=== PATIENT | male | born 1945 | race Caucasian/White ===

== ENCOUNTER 2024-10-20 12:45 | Inpatient (IN) | payer MEDICARE, SELFPAY ==
[2024-10-20 13:33] VITALS: BP 120/63; PULSE 63; RESP 18; TEMP 36.4; O2SAT 98
[2024-10-20 14:14] VITALS: RESP 18; O2SAT 95
[2024-10-20 15:15] VITALS: O2SAT 97
--- NOTE | 2024-10-20 15:15 | HP.PCM_ITS ---
HPI - General General Date of Admission: 10/20/24 Date of Service: 10/22/24 Chief Complaint: Here for rehabilitation. HPI Narrative ABDIFATAH FONSECA, is a 79 Male who presents with followin09/28/2024 Admit [facility] with chest pain, sharp pain in low back. Intramural aortic thrombus versus aortic dissection. Aspirin, nitroglycerin given by EMS. CT chest/abdomen/pelvis showed probable intraluminal hematoma/dissection extending from ascending thoracic aorta to descending thoracic aorta, stopping in upper abdominal aorta. Mediastinum hemorrhage, trace amount fluid. Esmolol bolus/drip started fot elevated blood pressure. Admit to ICU, CT surgery consulted. TERRIE NixonO. Trend troponins. 09/28/2024 CT surgery status post ascending aortic repair with circulatory arrest, IRINA. 10/16/2024 POD #18, afebrile, normal sinus rhythm, blood pressure stable, room air. Multiple strokes, right SDH; Aspirin, Statin, beta chastity, amlodipine, hydralazine, Losartan, Lasix given. Moves all extremities, weak, answering questions. Tolerating TF. Blood pressure controlled, Lasix 40mg iv, then po. Replete potassium. PT/OT/ST, OOB. 10/20/2024 Admit to TCU with debility, here for rehabilitation, strengthening, prior to discharge home with . [facility] Medical History (Updated 10/20/24 @ 15:[address] Eleno Kulkarni MD) Cancer Diabetes Non-smoker DVT (deep venous thrombosis) Hypertension Stroke/cerebrovascular accident Home Medications ?Medication ?Instructions ?Recorded ?Last Taken ?Type acetaminophen 500 mg capsule 1,000 mg feeding tube Q8H Pain 10/20/24 10/20/24 06:15 History amlodipine 10 mg tablet 10 mg feeding tube DAILY hea rt 10/20/24 10/20/24 08:40 History apixaban 5 mg tablet (Eliquis) 10 mg feeding tube BID blood 10/20/24 10/20/24 08:45 History thinner atorvastatin 40 mg tablet (Lipitor) 40 mg feeding tube QHS cholesterol 10/20/24 10/19/24 21:12 History carvedilol 25 mg tablet 25 mg feeding tube BID BP 10/20/24 08:45 History furosemide 40 mg tablet (Lasix) 40 mg feeding tube SUZIE LY fluid 10/20/24 10/20/24 08:45 History hydralazine 50 mg tablet 50 mg feeding tube TID BP 10/20/24 06:15 History insulin glargine 100 unit/mL (3 12 unit subcut DAILY D M 10/20/24 10/20/24 09:15 History mL) subcutaneous pen (Lantus Solostar U-100 Insulin) insulin regular human 100 unit/mL 4 unit subcut Q6H DM 10/20/24 Unknown History injection solution (Novolin R Regular U-100 Insulin) lansoprazole 30 mg delayed 30 mg feeding tube DAILY GE RD 10/20/24 10/20/24 06:15 History release,disintegrating tablet losartan 100 mg tablet (Cozaar) 100 mg feeding tube DA WARREN BP 10/20/24 10/20/24 08:45 History nystatin 100,000 unit/mL oral 4 ml PO Q6H THRUSH 10/2010/20/24 08:45 History suspension oxycodone 5 mg capsule 5 mg feeding tube Q6H Pain 7 -10 10/20/24 Unknown History potassium chloride 20 mEq oral 40 meq PO DAILY replace ment 10/20/24 10/20/24 08:45 History packet prednisone 5 mg tablet 5 mg feeding tube DAILY ster oid 10/20/24 10/20/24 08:40 History Allergy/AdvReac Type Severity Reaction Status Date / Time metformin Allergy Mild Fatigue Verified 10/20/24 14:45 amlodipine AdvReac Mild Cough Verified 10/20/24 14:45 betamethasone (From AdvReac Mild Raises Verified 10/20/24 14:45 Celestone) blood sugar Family History (Updated 10/20/24 @ 15:[address] Eleno Kulkarni MD) Mother Colon cancer Father Cerebral aneurysm Sister Valvular heart disease Surgical History (Updated 10/20/24 @ 15:[address] Eleno Kulkarni MD) History of retinal tear History of prostatectomy History of sinus surgery History of colonoscopy History of cataract surgery Social History (Updated 10/20/24 @ 15:[address] Eleno Kulkarni MD) household members: significant other and children housing: house Smoking Status: Never smoker alcohol intake: current alcohol intake frequency: 0-2 drinks per day substance use type: does not use ROS Constitutional Constitutional: Reports weakness; Denies chills, fever(s) or weight gain ENT HEENT: Denies headache(s), nasal congestion or nasal discharge Cardiovascular Cardiovascular: Denies chest pain or palpitations Respiratory/Chest Respiratory/Chest: Denies cough, excessive phlegm production or shortness of breath with exertion Gastrointestinal Gastrointestinal: Denies abdominal pain, nausea or vomiting Genitourinary Genitourinary: Denies dysuria Musculoskeletal Musculoskeletal: Denies joint pain or joint swelling Integumentary Integumentary: Denies rash or wounds Neurologic Neurologic: Denies focal weakness, numbness or tingling Psychiatric Psychiatric: Denies anxiety, auditory hallucinations, depression, homicidal ideation or suicidal ideation Vital Signs Vital Signs Vital Signs: 10/20/24 13:33 10/20/24 14:14 Temperature 97.6 F L Temperature Source Temporal Pulse Rate 63 Pulse Rhythm Regular Pulse Strength Normal (2+) Respiratory Rate 18 18 Respiratory Effort Normal Non-Labored Respiratory Depth Normal Respiratory Pattern Normal Blood Pressure 120/63 Blood Pressure Mean 82 Blood Pressure Source Monitor Blood Pressure Position Semi-Fowlers Blood Pressure Location Left Arm Pulse Ox 98 95 Oxygen Delivery Method Room Air Room Air Physical Exam Const alert General Appearance: cooperative HEENT normocephalic Eyes PERRL and EOMs intact bilaterally Neck supple, no JVD and no carotid bruits Resp normal respiratory effort, normal air movement and clear to auscultation bilaterally Cardio regular rate and regular rhythm GI normal to inspection, nondistended, normoactive bowel sounds, non-tender and non-distended GI Narrative: PEG. Extremity normal capillary refill General Extremity: Negative for edema Skin no rashes or lesions noted General Skin Exam: no breakdown Neuro Neuro Narrative: Moves right upper extremity only. Psych affect normal Appearance: appropriate Results Lab / Micro Data 10/21/24 04:40 10/21/24 04:40 Assessment & Plan Assessment/Plan (1) Debility: (2) Aortic dissection: (3) Stroke/cerebrovascular accident: (4) Subdural hematoma: (5) Essential (primary) hypertension: (6) Hyperlipidemia, unspecified: (7) History of prostate cancer: (8) Osteoarthritis of right knee: (9) Type 2 diabetes mellitus with hyperglycemia: PLAN: Plan 79 year old male with below past medical history hospitalized for ascending thoracic aortic dissection s/p repair 09/28/2024, postoperative course complicated by stroke, right subdural hematoma, TF, admitted to TCU with debility, here for rehabilitation, strengthening, prior to discharge home with . * Debility - PT/OT. * Dysphagia - ST. * Pain - Tylenol 1000mg q8, Oxycodone 5mg q6 prn * Bowel - senna/colace 1 tablet bid. * Adult immunization - Administer pneumonia vaccine, covid vaccine, flu vaccine as appropriate. * DVT prophylaxis - Eliquis. * Hypertension - Coreg 25mg bid, Losartan 100mg daily, Hydralazine 50mg tid, Amlodipine 10mg daily, Furosemide 40mg daily. * RUE DVT - Eliquis 10mg bid thru 10/25/2024, then 5mg bid thru 01/18/2025. * Hyperlipidemia - Atorvastatin 40mg qhs. * Diabetes Mellitus II - Glargine 12 units daily, Lispro 4 units q6. * GERD - Lansoprazole 30mg daily. * Thrush - Nystatin 400 units q6 x 10 days. * Hypokalemia - KCL 40meq daily. * Pulmonary inflammation - Prednisone 5mg daily. * Nutrition - Vital High Protein 50ml/hour.
[2024-10-20] MEDS: Vital High Protein 1,000 ML 50 ML GT (15:40)
[2024-10-20 15:41] VITALS: BP 120/63; PULSE 63
[2024-10-20] MEDS: NYSTATIN 500,000 UNIT/5 ML UDC 400000 UNIT PO ×2 (18:00→23:56)
[2024-10-20 21:35] VITALS: BP 145/70; PULSE 73; RESP 18
[2024-10-20 21:38] VITALS: BP 145/70; PULSE 73
[2024-10-20] MEDS: APIXABAN 5 MG TABLET 10 MG GT (21:39)
[2024-10-20] MEDS: Acetaminophen 650 MG/20 ML UDC 1000 MG GT (22:14)
[2024-10-21 05:06] LABS: Hematocrit 37.2 % (40-54); Hemoglobin 12.7 g/dL (13.0-16.5); Immature Granulocytes Count 0.070 X10^3/uL (0.0-0.0); Mean Corp Hgb Conc 34.1 g/dL (32-36); Mean Corpuscular Volume 88.4 fL (80-94); Mean Platelet Vol. 10.4 fl (6.2-12.0); NRBC Flagged by Analyzer 0 % (0-5); Platelet Count 236 K/mm3 (150-450); RBC Distribution Width CV 14.7 % (11.6-14.6); RBC Distribution Width SD 47.5 fl (35.1-43.9); Red Blood Count 4.21 M/mm3 (4.6-6.2); White Blood Count 11.7 K/mm3 (4.4-11.0)
[2024-10-21 05:45] LABS: Anion Gap 12 (5-15); BUN 46 mg/dL (4-19); BUN/Creat Ratio 46.2 RATIO (10-20); Calcium,Total 8.7 mg/dL (7.6-11.0); Carbon Dioxide 19.7 mmol/L (21.0-32.0); Chloride 105 mmol/L (98-108); Glucose 182 mg/dL (70-99); Potassium 3.9 mmol/L (3.3-5.1)
[2024-10-21] MEDS: 0.9% Saline Lock 10 ML Syringe IV ×3 (06:41→22:39)
[2024-10-21] MEDS: Acetaminophen 650 MG/20 ML UDC 1000 MG GT ×3 (06:44→22:38)
[2024-10-21] MEDS: NYSTATIN 500,000 UNIT/5 ML UDC 400000 UNIT PO ×3 (06:45→17:15)
[2024-10-21 06:46] VITALS: BP 122/62; PULSE 64
[2024-10-21] MEDS: APIXABAN 5 MG TABLET 10 MG GT ×2 (09:17→22:38)
[2024-10-21] MEDS: Potassium Chloride Oral Soln 20 MEQ/15 ML UDC 40 MEQ GT (09:18)
--- NOTE | 2024-10-21 09:44 | PCM.PN.DRR ---
Documented by User: Jj Roman 10/21/24 10:38 TCU RX Drug Regimen Review Subjective/Objective Subjective/Objective Subjective: TCU admission note. 79 year old male with below past medical history hospitalized for ascending thoracic aortic dissection s/p repair 09/28/2024, postoperative course complicated by stroke, right subdural hematoma, TF, admitted to TCU with debility, here for rehabilitation, strengthening, prior to discharge home with . Objective: Allergies metformin Allergy (Mild, Verified 10/20/24 14:45) Fatigue amlodipine Adverse Reaction (Mild, Verified 10/20/24 14:45) Cough betamethasone (From Celestone) Adverse Reaction (Mild, Verified 10/20/24 14:45) Raises blood sugar Current Medications Generic Name Dose Route Start Last Admin Trade Name Freq PRN Reason Stop Dose Admin Acetaminophen 1,000 mg 10/20/24 22:00 10/21/24 06:44 Acetaminophen 650 Mg/20 Ml Udc GT 1,000 mg Q8 KAZ Administration Amlodipine Besylate 10 mg 10/21/24 10:00 10/21/24 09:15 Amlodipine 10 Mg Tablet GT 10 mg DAILY KAZ Administration Protocol Apixaban 10 mg 10/20/24 22:00 10/21/24 09:17 Apixaban 5 Mg Tablet GT 10/25/24 22:01 10 mg BID KAZ Administration Apixaban 5 mg 10/26/24 10:00 Apixaban 5 Mg Tablet GT 01/18/25 23:59 BID KAZ Atorvastatin Calcium 40 mg 10/20/24 22:00 10/20/24 21:39 Atorvastatin Calcium 40 Mg Tablet GT 40 mg QHS KAZ Administration Carvedilol 25 mg 10/20/24 22:00 10/21/24 09:17 Carvedilol 25 Mg Tablet GT 25 mg BID KAZ Administration Furosemide 40 mg 10/21/24 10:00 10/21/24 09:17 Furosemide 40 Mg Tablet GT 40 mg DAILY KAZ Administration Protocol Hydralazine HCl 50 mg 10/20/24 14:00 10/21/24 06:46 Hydralazine 50 Mg Tablet GT 50 mg TID KAZ Administration Protocol Enteral Nutritional Formula 1,000 mls @ 50 mls/hr 10/20/24 13:45 10/20/24 15:40 Vital High Protein GT 50 mls/hr .Q20H KAZ Administration Insulin Glargine 12 unit 10/21/24 10:00 Insulin Glargine-Yfgn 100 Unit/Ml Pen SC DAILY KAZ Insulin Human Lispro 4 unit 10/20/24 18:00 10/21/24 06:45 Insulin Lispro 100 Unit/Ml Insuln.Pen SC 4 u Q6 KAZ Administration Lansoprazole 30 mg 10/21/24 10:00 10/21/24 09:17 Lansoprazole 15 Mg Capsule.Dr GT 30 mg DAILY KAZ Administration Losartan Potassium 100 mg 10/21/24 10:00 10/21/24 09:17 Losartan Potassium 100 Mg Tablet GT 100 mg DAILY KAZ Administration Protocol Nystatin 400,000 unit 10/20/24 18:00 10/21/24 06:45 Nystatin 500,000 Unit/5 Ml Udc PO 10/30/24 18:01 400,000 unit Q6 KAZ Administration Oxycodone HCl 5 mg 10/20/24 14:00 Oxycodone 5 Mg Tablet GT Q6H PRN PAIN 7-10 Potassium Chloride 40 meq 10/21/24 10:00 10/21/24 09:18 Potassium Chloride Oral Soln 20 Meq/15 Ml Udc GT 40 meq DAILY KAZ Administration Prednisone 5 mg 10/21/24 10:00 10/21/24 09:15 Prednisone 5 Mg Tablet GT 5 mg DAILY KAZ Administration Senna/Docusate Sodium 1 tablet 10/20/24 15:38 Senna/Docusate Sodium 1 Tablet GT BID PRN Constipation Sodium Chloride 10 - 40 ml 10/20/24 13:36 10/21/24 09:23 0.9% Saline Lock 10 Ml Syringe IV 10 ml UD PRN Administration SALINE FLUSH Tuberculin PPD 0.1 ml 10/21/24 10:00 Tuberculin,Purif.Prot.Deriv. 50 Tu/Ml Vial ID 10/21/24 10:01 X1 ONE Tuberculin PPD 0.1 ml 10/28/24 10:00 Tuberculin,Purif.Prot.Deriv. 50 Tu/Ml Vial ID 10/28/24 10:01 X1 ONE Problem List Type 2 diabetes mellitus with hyperglycemia (Acute) Osteoarthritis of right knee (Acute) History of prostate cancer (Acute) Hyperlipidemia, unspecified (Acute) Essential (primary) hypertension (Acute) Subdural hematoma (Acute) Stroke/cerebrovascular accident (Acute) Aortic dissection (Acute) Debility (Acute) Vital Signs Temp Pulse Resp BP Pulse Ox O2 Del Method 97.6 F L 64 18 122/62 H 97 Room Air 10/20/24 13:33 10/21/24 06:46 10/20/24 21:35 10/21/24 06:46 10/20/24 15:15 10/20/24 20:25 Oxygen Delivery Method Room Air Sodium 137 mmol/L (133-145) 10/21/24 04:40 Potassium 3.9 mmol/L (3.3-5.1) 10/21/24 04:40 Chloride 105 mmol/L (98-108) 10/21/24 04:40 Carbon Dioxide 19.7 mmol/L (21.0-32.0) L 10/21/24 04:40 Anion Gap 12 (5-15) 10/21/24 04:40 BUN 46 mg/dL (4-19) H 10/21/24 04:40 Creatinine 0.99 mg/dL (0.70-1.20) 10/21/24 04:40 Est GFR (MDRD) Non-Af 79 (>60) 10/21/24 04:40 BUN/Creatinine Ratio 46.2 RATIO (10-20) H 10/21/24 04:40 Glucose 182 mg/dL (70-99) H 10/21/24 04:40 Assessment/Plan: 1. Pain: acetaminophen 1000 mg GT Q8H, oxycodone 5 mg GT Q6H PRN pain. The patient has not used any PRN doses of oxycodone so far this admission. Please continue to monitor pain levels, PRN medication usage, LFTs (no recent LFTS documented), for respiratory depression, constipation, syncope/ataxia/falls, and for drowsiness/dizziness. 2. Bowel: senna/docusate 1 tablet GT BID. Please continue to monitor for bowel movements (last documented on 10/20/24), for constipation and diarrhea. 3. DVT: apixaban 10 mg GT BID through 10/25/24, then apixaban 5 mg GT BID through 01/18/25. Please continue to monitor for recurrent DVT, for bleeding/excessive bruising, hemoglobin levels (Hgb = 12.7 g/dL), and platelet counts (Plt = 236 K/mm3). 4. Hypertension: carvedilol 25 mg GT BID, amlodipine 10 mg GT daily, furosemide 40 mg GT daily, hydralazine 50 mg GT TID, losartan 100 mg GT daily. Please continue to monitor blood pressures (recent range = 120-145/62-70 mmHg), heart rates (recent range = 63-73 beats/min), for fatigue, lower extremity edema, renal function (serum creatinine = 0.99 on 10/21/24), sodium levels (Na = 137 mmol/L on 10/21/24), potassium levels (K = 3.9 mmol/Tripp 10/21/24), calcium levels (Ca = 8.7 mg/dL on 10/21/24), for s/s of dehydration, and for dizziness. 5. Hyperlipidemia: atorvastatin 40 mg GT QHS. Please continue to monitor lipid levels (no recent lipid levels documented), as well as LFTs (no recent LFTs documented), and for myalgias. 6. Diabetes Mellitus II: insulin glargine 12 units SC daily, insulin lispro 4 units SC Q6H. Please continue to monitor hemoglobin A1C levels (no recent A1C documented), and blood glucose levels (recent range = 116-172 mg/dL). 7. GERD: lansoprazole 30 mg GT daily. Please continue to monitor for s/s of GERD, for diarrhea that could indicate clostridium difficile infection, and for s/s of bone resorption such as fractures. 8. Thrush: nystatin 400,000 units PO Q6H through 10/30/24. Please continue to monitor for resolution of thrush. 9. Hypokalemia: potassium chloride 40 mEq GT daily. Please continue to monitor potassium levels (K = 3.9 mmol/Tripp 10/21/24), and for GI distress with potassium administration,. 10. Pulmonary inflammation: prednisone 5 mg GT daily. Please continue to monitor for s/s of pulmonary inflammation, blood glucose levels (recent range = 116-172 mg/dL), and blood pressures (recent range = 120-145/62-70 mmHg), as well as for agitation. 11. Nutrition: Vital High Protein at 50 mL/hr. Please continue to monitor overall nutritional status. Assessment/Plan for indications treated with psychotropic medications: NA Medical chart and medication regimen reviewed. The following medication irregularities or issues were identified: NA Date Date of Note: 10/21/24 Documented by User: Dr. Eleno Kulkarni MD 10/21/24 12:28 TCU RX Drug Regimen Review Provider Comments Provider responsibility Provider Comments to Recommendations by Pharmacy Agree
[2024-10-21] MEDS: Insulin Glargine-YFGN 100 UNIT/ML Pen 12 UNIT SC (09:45)
[2024-10-21] MEDS: Tuberculin,Purif.prot.deriv. 50 TU/ML Vial 0.1 ML ID (10:19)
[2024-10-21 11:33] VITALS: BP 108/52; PULSE 63; RESP 16; TEMP 36.6; O2SAT 97
[2024-10-21 14:09] VITALS: BP 109/59; PULSE 62
[2024-10-21] MEDS: Vital High Protein 1,000 ML 50 ML GT (14:10)
[2024-10-21 14:52] VITALS: BMI 31.6
[2024-10-21 15:03] VITALS: BMI 31.6
--- NOTE | 2024-10-21 18:08 | NURSING ---
Vital AF started at 1430. Call placed to pharmacy. RN spoke with Jj. Jj reported to start Jevity when Vital AF completed.
[2024-10-21 22:35] VITALS: BP 126/51; PULSE 64
[2024-10-21 22:38] VITALS: PULSE 64
[2024-10-22] VITALS (7 sets, daily range): BP systolic 115–132; BP diastolic 51–57; PULSE 63–68; RESP 16; TEMP 36.6; O2SAT 94–98
[2024-10-22] MEDS: NYSTATIN 500,000 UNIT/5 ML UDC 400000 UNIT PO ×4 (00:01→16:58)
[2024-10-22] MEDS: Acetaminophen 650 MG/20 ML UDC 1000 MG GT ×3 (05:36→22:51)
[2024-10-22] MEDS: Insulin Glargine-YFGN 100 UNIT/ML Pen 12 UNIT SC (09:55)
[2024-10-22] MEDS: APIXABAN 5 MG TABLET 10 MG GT ×2 (09:55→22:50)
[2024-10-22] MEDS: Potassium Chloride Oral Soln 20 MEQ/15 ML UDC 40 MEQ GT (09:57)
[2024-10-22] MEDS: Jevity 1.5 1,000 ML 55 ML GT (10:54)
[2024-10-22] MEDS: 0.9% Saline Lock 10 ML Syringe IV (22:55)
[2024-10-23] VITALS (8 sets, daily range): BP systolic 104–142; BP diastolic 50–63; PULSE 63–73; RESP 16; TEMP 36.1; O2SAT 98
[2024-10-23] MEDS: NYSTATIN 500,000 UNIT/5 ML UDC 400000 UNIT PO ×5 (00:11→23:09)
[2024-10-23] MEDS: Acetaminophen 650 MG/20 ML UDC 1000 MG GT ×3 (05:52→22:50)
[2024-10-23] MEDS: Jevity 1.5 1,000 ML 55 ML GT (05:53)
--- NOTE | 2024-10-23 10:32 | CASEMGMT ---
Addendum entered by Nataliia Garrett 10/23/24 13:26: SW left VM with [facility] primary care SW Monisha Luther, requesting call back to discuss services available to pt. Addendum entered by Nataliia Garrett 10/23/24 13:21: Dtr present with pt at therapy session. SW spoke with dtr in SW office and explained below information provided to . Answered dtr's question. Dtr would like to see if the [facility] can assist. SW to inquire. SW educated to contacting [facility] to inquire about pt having qualifying life event if elgibile to change insurance to traditional Medicare to not have managed SNF coverage and more options for INN care. Briefly explained Medicare benefit. Dtr to consider. SW offered to assist with [place] paperwork. Dtr unaware of [place]. SW educated. Dtr appreciative and will contact her HR department. Dtr will be present at POC meeting tomorrow with . SW to provide any known updates. Original Note: Social Work SW phoned to complete initial assessment. Introduced self and role. Verified/updated contacts. verified code status as full code. confirmed pt does not have advance directives. Pt does not have the capacity to complete at this time. SW discussed home set up and DC goals. stated she is contacting a stair lift company to have one installed to the second floor. SW encouraged to begin that process. SW educated to [facility] insurance with NRD 10/25, review process and required 3-day notice for DC date. SW cautioned that insurance typically does not approve extensive time for TCU stay, and given pt's high LOC, pt may need a SNF at DC prior to home. Pt is currently a nely lift and has a new peg. processing information and was not aware of the insurance coverage limitations. inquired if insurance will cover another SNF stay. SW denied, and educated to skilled vs intermediate care. inquired if the VA could provide any assistance. SW explored further and offered to contact [facility], where pt is connected, to inquire his options. appreciative. SW assured this worker will assist with navigating DC plans. appreciative. SW will continue to follow. Nataliia Garrett INPATIENT NURSING AIDE HOOP COILER
[2024-10-23] MEDS: Insulin Glargine-YFGN 100 UNIT/ML Pen 12 UNIT SC (11:00)
[2024-10-23] MEDS: Potassium Chloride Oral Soln 20 MEQ/15 ML UDC 40 MEQ GT (11:02)
[2024-10-23] MEDS: APIXABAN 5 MG TABLET 10 MG GT ×2 (11:04→22:49)
[2024-10-24] MEDS: Jevity 1.5 1,000 ML 55 ML GT (03:09)
[2024-10-24 05:02] VITALS: BP 124/58; PULSE 62
[2024-10-24] MEDS: NYSTATIN 500,000 UNIT/5 ML UDC 400000 UNIT PO ×3 (05:06→19:47)
[2024-10-24] MEDS: Acetaminophen 650 MG/20 ML UDC 1000 MG GT (05:07)
[2024-10-24 05:08] VITALS: BP 124/58; PULSE 62
--- NOTE | 2024-10-24 10:25 | CASEMGMT ---
Social Work IDT met with patient, and dtr for care plan meeting. Discussed patient's progress in PT/OT/ST/SN/RDN. Educated to [facility] insurance with NRD 10/25 and continued stay is not guaranteed with each review; required to provide a 3-day notice for DC. Provided pt/family with written communication of insurance process and copay coverage during stay. SW has not received return call from [place] at this time. Answered family's question. Pt has MBS this date. SW provided resources for family: private duty PRICE ANALYST, ramps/handrails, Stroke Support Group, information from ASA, Caregiver Guide to a Stroke and Life After a Stroke. Family unsure the DC plan; they would like to see what the VA can offer. SW cautioned to rely on the VA for assistance and encouraged to begin researching alt. DC plan. SW offered to provide list of SNF options. Family agreed. SW provided list of SNFs in preferred geographical area, INN AND OON with pt?s insurance, including quality and resource data via CarePort Guide. Educated to INN and OON benefit difference, as [facility] and [place] has limited facility options. SW educated to star ratings and utilizing Medicare.gov/nursinghomecompare to assist with decision making, along with touring facilities. Family to review and contact this worker with any questions. SW will continue to follow for DC planning and support. Nataliia MORFIN DIRECTOR PERSONAL
--- NOTE | 2024-10-24 10:39 | SP.MBSS_ITS ---
Modified Barium Swallow Patient Information Study Date: 10/24/24 Study Time: 10:30 Direct Billable Minutes: 92 Total Minutes procedure & reportin Diagnosis: CVA I63.9; Subdural hematoma S06.5XAA Referring Physician: Eleno Kulkarni Chi Reason for Referral: Assess swallow function and risk for aspiration to determine recommendations for LRD textures and other appropriate dysphagia interventions. Medical History: Patient is a 79 y/o M seen for ST evaluation per physician order following admission to the TCU for rehabilitation. Patient initially presented to [facility] with chest pain. CT of chest/abdomen/pelvis showed probable intraluminal hematoma/dissection. He underwent CT surgery for ascending aortic r epair complicated by circulatory arrest and IRINA. Hospitalization was further complicated by several strokes and R SDH. He had an MBSS recommending NPO and a PEG was placed. Upon transfer to [facility] TCU, BSE was completed 10/22/2024 recommending NPO w/ recommendation for repeat MBSS due to some coughing w/ thin liquid trials, delayed swallow onset but no coughing w/ pudding trials. Of note, pt has very severe cognitive impairment and scored 1/30 on the MOCA administered by SECRETARY ADMINISTRATIVE ASSISTANT 10/22/2024. PMHx: Hx of prostate cancer, Diabetes, Non-smoker, DVT, HTN, CVA, Aortic dissection, Debility. Current Diet Ordered: NPO Dentition: Upper Dentures Mental Status: Impaired Respiratory Status: Oxygenating on Room Air Penetration-Aspiration Scale Penetration-Aspiration Scale: OBJECTIVE ASSESSMENT OF SWALLOW FUNCTION (QUANTITATIVE ? PER TRIAL): PENETRATION / ASPIRATION SCALE (SAINZ): 1 = does not enter airway 2 = enters airway/above vocal folds/ejected 3 = enters airway/above vocal folds/not ejected 4 = enters airway/contacts vocal folds/ejected 5 = enters airway/contacts vocal folds/not ejected 6 = enters airway/below vocal folds/ejected 7 = enters airway/below vocal folds/not ejected despite effort 8 = enters airway/below vocal folds/no effort VIDEOFLOROSCOPIC SCALE SCORE (SAINZ): Grade I = aspiration of material that has penetrated into the laryngeal vestibule, intact cough reflex Grade II = aspiration < 10 % of the bolus, intact cough reflex Grade III = aspiration of < 10 % of the bolus, reduced cough reflex or aspiration of > 10 % of the bolus, intact cough reflex Grade IV = aspiration of > 10 % of the bolus, reduced cough reflex Penetration-Aspiration Scale Score Thin Liquid via teaspoon: Result: 1= does not enter airway Thin Liquid via teaspoon Trial 2: Result: 1= does not enter airway Thin Liquid via small single sip: cup: Result: 1= does not enter airway (self-administered, very small) Thin Liquid via small single sip: cup Trial 2: Result: 1= does not enter airway [place] Thick Liquid via small single sip: cup: Result: 1= does not enter airway Pudding via teaspoon: Result: 1= does not enter airway Comment: Esophageal screen - Complete clearance. 1/2 Cookie: Result: 1= does not enter airway Comment: Esophageal screen - Complete clearance. Thin Liquid via single sip: straw: Result: 1= does not enter airway Thin Liquid via sequential sips:straw: Result: 5= enters airways/contacts vocal folds/not ejected Comment: Cued cough and re-swallow = not effective. Thin Liquid via single sip: straw Trial 2: Result: 2= enter airway/above vocal folds/ejected Oral Phase Labial Seal: No Labial Escape Tongue Control During Bolus Hold: Posterior escape of less than half of bolus Bolus Preparation/Mastication: Disorganized chewing/mashing with solid pieces of bolus unchewed (small piece of cookie appeared un-chewed, majority of bolus chewed thoroughly) Bolus Transport/Lingual Motion: Repetitive/disorganized tongue motion Oral Residue: Residue collection on oral structures Pharyngeal Phase Initiation of Pharyngeal Swallow: Bolus head in pyriforms Soft Palate Elevation: Trace column of contrast/air between soft palate and pharyngeal wall Laryngeal Elevation: Partial superior movement thyroid cart/partial apprx aryt- epig petiole Anterior Hyoid Excursion: Partial anterior movement Epiglottic Movement: Complete inversion Laryngeal Vestibule Closure at Height of Swallow: Incomplete; narrow column of air/contrast in laryngeal vestibule Pharyngeal Stripping Wave: Present - complete Pharyngoesophageal Segment Opening: Parital distension and partial duration; parital obstruction of flow (trace retention in the UES) Tongue Base Retraction: Narrow column of contrast between tongue base & post. pharyngeal wall Pharyngeal Residue: Collection of residue within or on pharyngeal structures Esophageal Phase Esophageal Clearance: Complete clearance Treatment Strategies Effects of treatment strategies attemped:: Cough and re-swallow = not effective. Slowed rate (sips 1 at a time) = effective. Diagnosis/Impression Diagnosis: Mild-moderate oropharyngeal dysphagia R13.12 Impression: The oral phase is primarily marked by... -Decreased bolus control w/ posterior loss of <1/2 of liquid boluses to the pyriform sinuses prior to swallow onset. -Lingual pumping for A-P transport. -Prolonged mastication w/ small piece of cookie appeared un-chewed, majority of bolus chewed thoroughly. -Mild oral residue. The pharyngeal phase is primarily marked by... -Delayed swallow onset. -Mildly decreased TB retraction; however, good pharyngeal stripping wave. Trace- mild pharyngeal residues. -Decreased airway closure during the swallow due to decreased anterior hyoid excursion and laryngeal elevation w/ deep laryngeal penetration of sequential sips of thin liquids to the vocal folds w/o ejection. No aspiration; however, pt is at increased risk for aspiration w/ sequential sips of liquids. Recommendations Diet: Soft and Bite Sized Textures and Thin Liquids Compensatory Strategies: Small Bites, Small Sips (SIPS ONE AT A TIME), Slow Rate, Alternate bites/solids and sips/liquids, Sitting upright and Remain sitting upright for 30 minutes after PO intake Supervision: 1:1 Direct Supervision (Family ok to supervise if present) Recommend Repeat Modified Barium Swallow: TBD Need for Skilled Speech Therapy Services: Yes Comment: -Train the patient, family, and staff in use of strategies to decrease risk for aspiration. -Ongoing assessment of diet tolerance of recommended textures. Ok to further advance solids at bedside if good tolerance of trials of easy to chew and regular textures w/ treating SECRETARY ADMINISTRATIVE ASSISTANT. -Train the patient in oropharyngeal exercise program to improve bolus control, airway closure (lingual resistance, effortful swallows, CTAR). Education Completed: 1. Described result of evaluation., 4. Family/caregivers understand evaluation & agree w/ goals & tx plan. and 7. Pt requires further education on strategies & risks. Comment: SECRETARY ADMINISTRATIVE ASSISTANT informed reimbursement representative and RN of results and recommendations of MBSS, as well. Status Active ST Patient: Active Contact Information [facility] Speech Therapy:: Estella Bland M.A. [facility]-SECRETARY ADMINISTRATIVE ASSISTANT? Speech-Language Pathologist?? [facility] [address] [place] [address]? [email or web address]?? [phone]
[2024-10-24 11:44] VITALS: BP 111/52; PULSE 65; RESP 17; TEMP 36.4; O2SAT 90
[2024-10-24] MEDS: APIXABAN 5 MG TABLET 10 MG GT ×2 (11:47→22:15)
[2024-10-24] MEDS: Potassium Chloride Oral Soln 20 MEQ/15 ML UDC 40 MEQ GT (11:48)
[2024-10-24] MEDS: Insulin Glargine-YFGN 100 UNIT/ML Pen 12 UNIT SC (11:54)
--- NOTE | 2024-10-24 12:12 | NURSING ---
residual peg tube was 10cc
--- NOTE | 2024-10-24 13:02 | NURSING ---
Activity /coordinator Note; Activity Asset: Chetna Emmanuel was fully independent in his choice of daily activities prior to stroke. Staff needs to asset: him w/tv, reading and music. His is here daily to help him as well. He is able to [id number] to some question will short words. Staff will remind him and family of daily activities and respect his right to say no. He will have weekly 1.1 visits fro extra social interaction.
[2024-10-24 22:08] VITALS: BP 107/49; PULSE 69
[2024-10-24 22:09] VITALS: PULSE 69; RESP 16; O2SAT 94
[2024-10-24 22:14] VITALS: PULSE 69
[2024-10-25] VITALS (7 sets, daily range): BP systolic 100–123; BP diastolic 47–53; PULSE 61–67; RESP 16–18; TEMP 36; O2SAT 97–99; BMI 36.2
[2024-10-25] MEDS: NYSTATIN 500,000 UNIT/5 ML UDC 400000 UNIT PO ×5 (00:05→23:00)
[2024-10-25] MEDS: Jevity 1.5 1,000 ML 55 ML GT ×3 (00:39→22:52)
[2024-10-25] MEDS: Potassium Chloride Oral Soln 20 MEQ/15 ML UDC 40 MEQ PO (08:56)
[2024-10-25] MEDS: APIXABAN 5 MG TABLET 10 MG GT ×2 (09:00→22:45)
[2024-10-25] MEDS: Insulin Glargine-YFGN 100 UNIT/ML Pen 12 UNIT SC (09:00)
--- NOTE | 2024-10-25 10:46 | CASEMGMT ---
Social Work SW completed BIMS (10/16) and PHQ-2 () for MDS assessment. Pt's speech has much improved from admission. Pt presented in bed comfortable and with good spirits. Nataliia Garrett MSW DATA CONTROL CLERK
--- NOTE | 2024-10-25 14:32 | CASEMGMT ---
Social Work SW left another VM with Monisha CARRASCO at [facility]. Nataliia Garrett VENETIAN BLIND CLEANER AND REPAIRER PATIENT OMBUDSPERSON
--- NOTE | 2024-10-25 22:54 | NURSING ---
Jevity hung at this time as ordered due to previous bottle complete at this time, tubing for jevity/and H20 flush changed at this time. H2O flush maintained per order, peg site without s/sx infection, no redness/no heat/no edema/no drainage, 3mL olivo/jevity colored residual. No distress observed or reported. Personal items and call light within reach. Bed in lowest position. Patient denies pain at this time.
[2024-10-26 05:38] VITALS: BP 121/56; PULSE 63
[2024-10-26 05:43] VITALS: PULSE 63
[2024-10-26] MEDS: NYSTATIN 500,000 UNIT/5 ML UDC 400000 UNIT PO ×4 (05:44→22:35)
[2024-10-26 06:19] LABS: Hematocrit 33.9 % (40-54); Hemoglobin 11.2 g/dL (13.0-16.5); Immature Granulocytes Count 0.040 X10^3/uL (0.0-0.0); Mean Corp Hgb Conc 33.0 g/dL (32-36); Mean Corpuscular Volume 91.1 fL (80-94); Mean Platelet Vol. 10.8 fl (6.2-12.0); NRBC Flagged by Analyzer 0 % (0-5); Platelet Count 203 K/mm3 (150-450); RBC Distribution Width CV 14.9 % (11.6-14.6); RBC Distribution Width SD 49.7 fl (35.1-43.9); Red Blood Count 3.72 M/mm3 (4.6-6.2); White Blood Count 9.0 K/mm3 (4.4-11.0)
[2024-10-26 06:51] LABS: Anion Gap 11 (5-15); BUN 47 mg/dL (4-19); BUN/Creat Ratio 50.3 RATIO (10-20); Calcium,Total 8.7 mg/dL (7.6-11.0); Carbon Dioxide 20.2 mmol/L (21.0-32.0); Chloride 107 mmol/L (98-108); Estimated Creatinine Clearance 78.43 ml/min (50-250); Glucose 157 mg/dL (70-99); Potassium 5.3 mmol/L (3.3-5.1)
[2024-10-26] MEDS: Insulin Glargine-YFGN 100 UNIT/ML Pen 12 UNIT SC (09:04)
[2024-10-26] MEDS: APIXABAN 5 MG TABLET GT ×2 (09:04→22:33)
[2024-10-26 10:00] VITALS: BP 119/52; PULSE 64; RESP 16; TEMP 36.3; O2SAT 99; BMI 35.1
--- NOTE | 2024-10-26 13:19 | MDS.RN ---
Pain assessment for MDS complete.
[2024-10-26 15:17] VITALS: BP 125/55; PULSE 70
--- NOTE | 2024-10-26 15:19 | CASEMGMT ---
Social Work presented to this worker's office and provided SNF choices - [facility], [facility]. [facility] about [facility]. SW has been 'playing phone tag' with Monisha HI LUNA, but no information has been received yet. SW informed that insurance has approved with NRD and must see progress. - LUNA sent referrals to both SNFs via [facility]. Nataliia PAYANW
[2024-10-26] MEDS: ABIRATERONE ACETATE 250 MG TABLET 750 MG PO (15:21)
--- NOTE | 2024-10-26 16:58 | NURSING ---
Tube feed changed to 70ml/hr from 5P-5A and 155ml flush q6h to encourage eating during day. made aware. Also potassium 5.3 this AM. Potassium supplement d/c and 1x dose of Kayexalate administered. Patient's cancer med for prostate CA also restarted per wide's request.
[2024-10-26] MEDS: Jevity 1.5 1,000 ML 70 ML GT ×2 (17:15→22:35)
[2024-10-26 20:01] VITALS: BP 123/54; PULSE 65
[2024-10-26 22:31] VITALS: PULSE 65
[2024-10-26] MEDS: MELATONIN 3 MG TABLET PO (22:34)
[2024-10-27 05:05] VITALS: BP 135/59; PULSE 64
[2024-10-27 05:07] VITALS: PULSE 64
[2024-10-27] MEDS: NYSTATIN 500,000 UNIT/5 ML UDC 400000 UNIT PO ×3 (05:07→18:12)
[2024-10-27] MEDS: APIXABAN 5 MG TABLET GT ×2 (08:24→22:19)
[2024-10-27] MEDS: Insulin Glargine-YFGN 100 UNIT/ML Pen 12 UNIT SC (08:25)
[2024-10-27] MEDS: ABIRATERONE ACETATE 250 MG TABLET 750 MG PO (08:36)
[2024-10-27 09:22] LABS: Anion Gap 12 (5-15); BUN 44 mg/dL (4-19); BUN/Creat Ratio 49.0 RATIO (10-20); Calcium,Total 8.8 mg/dL (7.6-11.0); Carbon Dioxide 23.2 mmol/L (21.0-32.0); Chloride 107 mmol/L (98-108); Estimated Creatinine Clearance 81.55 ml/min (50-250); Glucose 135 mg/dL (70-99); Potassium 3.4 mmol/L (3.3-5.1)
[2024-10-27 10:00] VITALS: BMI 31.6
[2024-10-27 12:31] VITALS: BP 121/54; PULSE 63; RESP 14; TEMP 36.6; O2SAT 100
[2024-10-27 13:35] VITALS: PULSE 66
[2024-10-27] MEDS: Jevity 1.5 1,000 ML 70 ML GT (16:23)
[2024-10-27] MEDS: MELATONIN 3 MG TABLET PO (22:19)
[2024-10-27 22:21] VITALS: BP 124/63; PULSE 67
[2024-10-28] MEDS: NYSTATIN 500,000 UNIT/5 ML UDC 400000 UNIT PO ×4 (01:24→17:54)
[2024-10-28 07:11] VITALS: BP 130/58; PULSE 66
[2024-10-28 08:40] VITALS: BP 117/50; PULSE 69; RESP 18; TEMP 37.1; O2SAT 97
[2024-10-28] MEDS: Insulin Glargine-YFGN 100 UNIT/ML Pen 12 UNIT SC (08:45)
[2024-10-28] MEDS: APIXABAN 5 MG TABLET GT ×2 (08:45→21:57)
[2024-10-28] MEDS: ABIRATERONE ACETATE 250 MG TABLET 750 MG PO (08:47)
[2024-10-28] MEDS: Tuberculin,Purif.prot.deriv. 50 TU/ML Vial 0.1 ML ID (11:53)
[2024-10-28 14:19] VITALS: BP 111/70; PULSE 65
[2024-10-28] MEDS: Jevity 1.5 1,000 ML 70 ML GT (17:53)
--- NOTE | 2024-10-28 17:58 | NURSING ---
no residual note with peg tube, tube feed initiated
[2024-10-28 18:30] VITALS: BMI 31.7
[2024-10-28 21:56] VITALS: BP 131/56; PULSE 67
[2024-10-28] MEDS: MELATONIN 3 MG TABLET PO (21:57)
[2024-10-29] MEDS: NYSTATIN 500,000 UNIT/5 ML UDC 400000 UNIT PO ×4 (00:32→18:18)
[2024-10-29 05:40] VITALS: PULSE 64
--- NOTE | 2024-10-29 08:23 | NURSING ---
Gin Feeder Note; MDS for 10/27/2024 Compete
--- NOTE | 2024-10-29 09:12 | NURSING ---
Offered covid vaccine, VIS provided. Resident declines.
--- NOTE | 2024-10-29 09:17 | CASEMGMT ---
Social Work SW phoned to notify that [facility] and [facility] both can accept and inquired about FOC. chose [facility] as FOC. SW updated that [facility] approved with NRD 11/01. Will continue to follow. Nataliia Garrett HOSPITAL ADMISSIONS OFFICER CREATIVE INTERN
[2024-10-29] MEDS: APIXABAN 5 MG TABLET GT ×2 (09:55→21:49)
[2024-10-29] MEDS: ABIRATERONE ACETATE 250 MG TABLET 750 MG PO (09:57)
[2024-10-29] MEDS: Insulin Glargine-YFGN 100 UNIT/ML Pen 12 UNIT SC (11:56)
[2024-10-29 14:46] VITALS: BP 102/55; PULSE 68
[2024-10-29 15:00] VITALS: BP 102/55; PULSE 68; RESP 20; TEMP 36.7; O2SAT 97
[2024-10-29] MEDS: Jevity 1.5 1,000 ML 70 ML GT (18:28)
[2024-10-29 21:45] VITALS: BP 135/59; PULSE 66; O2SAT 98
[2024-10-29 21:48] VITALS: BP 135/59; PULSE 66
[2024-10-29] MEDS: MELATONIN 3 MG TABLET PO (21:50)
[2024-10-30] MEDS: NYSTATIN 500,000 UNIT/5 ML UDC 400000 UNIT PO ×4 (00:09→17:57)
[2024-10-30 06:05] VITALS: BP 132/62; PULSE 64; O2SAT 98
[2024-10-30 06:07] VITALS: BP 132/62; PULSE 64
--- NOTE | 2024-10-30 06:24 | NURSING ---
2cc residual via peg, olivo/jevity colored, peg tube patent. No distress observed or reported. Peg site without s/sx infection, no redness, no heat, no edema,no drainage. Call light in reach.
[2024-10-30 08:38] VITALS: BP 134/67; PULSE 66; RESP 17; TEMP 36.2; O2SAT 94
[2024-10-30] MEDS: APIXABAN 5 MG TABLET GT ×2 (08:40→22:17)
[2024-10-30] MEDS: ABIRATERONE ACETATE 250 MG TABLET 750 MG PO (08:40)
[2024-10-30] MEDS: Insulin Glargine-YFGN 100 UNIT/ML Pen 12 UNIT SC (08:46)
[2024-10-30 12:31] VITALS: BMI 31.5
--- NOTE | 2024-10-30 13:21 | CASEMGMT ---
Addendum entered by Nataliia Garrett 11/01/24 11:41: LUNA received email from [facility] LUNA who confirmed [facility] approved pt's admission to [facility], once [facility] issues LCD. SW updated . Addendum entered by Nataliai Garrett 10/31/24 15:04: LUNA phoned to update on [facility] acceptance and the potential for the [facility] to cover that stay, just waiting for official confirmation from SD SW. is appreciative and that is the preference. SW updated [facility] and the other SNFs. Will continue to follow. Addendum entered by Nataliia Garrett 10/31/24 08:06: [facility] accepted and will request auth through SD LUNA. LUNA has not received response from SD SW yet. Will update family. Insurance NRD 11/01. Original Note: Social Work SW received VM from Monisha CARRASCO at [facility]. Monisha spoke with pt's dtr and the goal is to admit pt to [facility] for skilled services under [facility] benefit at time of DC from TCU. Monisha provided email address and requested clinicals to be sent to her and [facility]. LUNA completed. Will continue to follow. Nataliia MORFIN RAILWAY SIGNAL ELECTRICIAN
[2024-10-30 14:08] VITALS: BP 107/51; PULSE 63
--- NOTE | 2024-10-30 15:26 | CHAPLAIN ---
Type of Pastoral Visit _x__ Initial Visit ___ Follow-up Visit ___ On-call Visit ___ General Patient Visit ___ Spiritual Assessment ___ Family Conference ___ Bereavement ___ Rapid Response ___ Code Blue ___ Other (describe below) Pastoral Care Referral From _x__ Patient _x__ Family ___ Nurse ___ Physician ___ Nurse Substance Abuse ___ Computer Terminal Operator ___ Other (describe below) Sacrament/Intervention ___ Active listening ___ Anointing ___ Shinto ___ Bereavement ___ Communion _x__ Emelia exploration ___ ___ Life review _x__ Prayer ___ Reconciliation ___ Sacrament of Sick _x__ Supportive presence ___ Wedding ___ Other (describe below) Pastoral Comments patient is sitting up in the chair; spouse is in the room; most of the conversation is directed to the patient but he is slow to answer most of the time; pt does answer questions however even with some words that are not normally expected; pt does not appear to be in distress but his answers are about 'not getting better yet' and 'not sure what he needs'; pt denies that he needs anything; spouse says that they believe in prayer and would be glad for one; prayer given
[2024-10-30] MEDS: Jevity 1.5 1,000 ML 70 ML GT (17:57)
[2024-10-30 22:00] VITALS: PULSE 65; RESP 16; O2SAT 95
[2024-10-30 22:17] VITALS: BP 133/61; PULSE 64
[2024-10-30] MEDS: MELATONIN 3 MG TABLET PO (22:18)
[2024-10-31] MEDS: Jevity 1.5 1,000 ML 70 ML GT ×2 (05:38→17:15)
[2024-10-31 05:40] VITALS: BP 135/65; PULSE 65
[2024-10-31 06:47] VITALS: PULSE 64; RESP 18; O2SAT 96
[2024-10-31 09:45] VITALS: BP 126/62; PULSE 68; RESP 18; TEMP 36.6; O2SAT 97
[2024-10-31] MEDS: Insulin Glargine-YFGN 100 UNIT/ML Pen 12 UNIT SC (09:51)
[2024-10-31] MEDS: APIXABAN 5 MG TABLET GT ×2 (09:51→22:19)
[2024-10-31] MEDS: ABIRATERONE ACETATE 250 MG TABLET 750 MG PO (09:53)
[2024-10-31 14:05] VITALS: BP 108/58; PULSE 64
[2024-10-31 14:06] VITALS: BP 108/58; PULSE 64
--- NOTE | 2024-10-31 15:48 | WOUNDNOTE ---
wound photo: bilateral buttocks
[2024-10-31 22:17] VITALS: BP 141/64; PULSE 65
[2024-10-31] MEDS: MELATONIN 3 MG TABLET PO (22:19)
[2024-11-01] VITALS (7 sets, daily range): BP systolic 117–138; BP diastolic 54–61; PULSE 61–66; RESP 16–18; TEMP 36.4; O2SAT 95–98; BMI 31.6
--- NOTE | 2024-11-01 09:43 | MDS.RN ---
Information for the MDS was obtained from review of the clinical record, interview of resident, staff, and direct observation of resident?s care.
[2024-11-01] MEDS: APIXABAN 5 MG TABLET GT ×2 (09:52→22:03)
[2024-11-01] MEDS: Insulin Glargine-YFGN 100 UNIT/ML Pen 12 UNIT SC (09:52)
[2024-11-01] MEDS: ABIRATERONE ACETATE 250 MG TABLET 750 MG PO (09:54)
[2024-11-01] MEDS: Jevity 1.5 1,000 ML 70 ML GT (17:05)
[2024-11-01] MEDS: MELATONIN 3 MG TABLET PO (22:02)
[2024-11-02 06:29] VITALS: BP 128/58; PULSE 63
[2024-11-02 06:59] LABS: Hematocrit 31.6 % (40-54); Hemoglobin 10.6 g/dL (13.0-16.5); Immature Granulocytes Count 0.030 X10^3/uL (0.0-0.0); Mean Corp Hgb Conc 33.5 g/dL (32-36); Mean Corpuscular Volume 90.5 fL (80-94); Mean Platelet Vol. 10.1 fl (6.2-12.0); NRBC Flagged by Analyzer 0 % (0-5); Platelet Count 169 K/mm3 (150-450); RBC Distribution Width CV 14.6 % (11.6-14.6); RBC Distribution Width SD 48.1 fl (35.1-43.9); Red Blood Count 3.49 M/mm3 (4.6-6.2); White Blood Count 8.0 K/mm3 (4.4-11.0)
[2024-11-02 07:24] LABS: Anion Gap 10 (5-15); BUN 33 mg/dL (4-19); BUN/Creat Ratio 40.2 RATIO (10-20); Calcium,Total 8.5 mg/dL (7.6-11.0); Carbon Dioxide 25.2 mmol/L (21.0-32.0); Chloride 107 mmol/L (98-108); Estimated Creatinine Clearance 83.09 ml/min (50-250); Glucose 148 mg/dL (70-99); Potassium 3.5 mmol/L (3.3-5.1)
[2024-11-02] MEDS: APIXABAN 5 MG TABLET GT ×2 (09:35→22:14)
[2024-11-02] MEDS: Insulin Glargine-YFGN 100 UNIT/ML Pen 12 UNIT SC (09:36)
[2024-11-02] MEDS: ABIRATERONE ACETATE 250 MG TABLET 750 MG PO (09:36)
[2024-11-02 10:00] VITALS: BP 126/59; PULSE 65; RESP 16; TEMP 36.7; O2SAT 98; BMI 31.6
[2024-11-02 14:20] VITALS: BP 115/53; PULSE 64
[2024-11-02] MEDS: Jevity 1.5 1,000 ML 70 ML GT (18:07)
[2024-11-02 20:12] VITALS: PULSE 67; RESP 16; O2SAT 98
[2024-11-02 22:13] VITALS: BP 141/60; PULSE 69
[2024-11-02] MEDS: MELATONIN 3 MG TABLET PO (22:14)
[2024-11-03] VITALS (8 sets, daily range): BP systolic 108–149; BP diastolic 53–72; PULSE 61–67; RESP 17–18; TEMP 36.4–36.6; O2SAT 96–99; BMI 31.0
--- NOTE | 2024-11-03 05:22 | NURSING ---
Tube feed disconnected per order
[2024-11-03] MEDS: Insulin Glargine-YFGN 100 UNIT/ML Pen 12 UNIT SC (09:37)
[2024-11-03] MEDS: APIXABAN 5 MG TABLET GT ×2 (09:37→22:09)
[2024-11-03] MEDS: ABIRATERONE ACETATE 250 MG TABLET 750 MG PO (09:40)
[2024-11-03] MEDS: Jevity 1.5 1,000 ML 70 ML GT (17:35)
--- NOTE | 2024-11-03 20:21 | RAD_ITS ---
PROCEDURE: CHEST PA AND LATERAL 11/03/2024 REASON FOR EXAM: FINE CRACKLES TO POSTERIOR BASES TECHNIQUE: CHEST PA AND LATERAL COMPARISON: None FINDINGS: Heart size enlarged, nonspecific. Sternotomy changes. Left discoid opacities commonly atelectasis. No pneumothorax. Possible small left effusion with adjacent airspace disease. Developing pneumonia is possible. RAD/Chest PA and Lateral IMPRESSION: As above. [facility]
[2024-11-03] MEDS: MELATONIN 3 MG TABLET PO (22:10)
--- NOTE | 2024-11-04 00:13 | NURSING ---
Chest x-ray ordered d/t auscultation of fine crackles in posterior lung bases. Results called to Dr. Kulkarni. New order for Levaquin 750mg PO daily for 7 days, first dose to start now. Order read back to Dr. Kulkarni for clarification.
[2024-11-04 05:15] VITALS: BP 131/61; PULSE 60
[2024-11-04 05:17] VITALS: PULSE 60
[2024-11-04 10:04] VITALS: BP 134/65; PULSE 70; RESP 16; TEMP 36.3; O2SAT 99
[2024-11-04] MEDS: APIXABAN 5 MG TABLET GT ×2 (10:08→21:24)
[2024-11-04] MEDS: Insulin Glargine-YFGN 100 UNIT/ML Pen 12 UNIT SC (10:08)
[2024-11-04] MEDS: ABIRATERONE ACETATE 250 MG TABLET 750 MG PO (10:10)
[2024-11-04 14:58] VITALS: BP 114/58; PULSE 68
[2024-11-04 14:59] VITALS: PULSE 68
[2024-11-04] MEDS: Jevity 1.5 1,000 ML 70 ML GT (17:05)
[2024-11-04] MEDS: MELATONIN 3 MG TABLET PO (21:23)
[2024-11-04 21:24] VITALS: BP 123/57; PULSE 65
[2024-11-05 05:19] VITALS: BP 120/54; PULSE 64
[2024-11-05] MEDS: Insulin Glargine-YFGN 100 UNIT/ML Pen 12 UNIT SC (09:19)
[2024-11-05] MEDS: APIXABAN 5 MG TABLET GT ×2 (09:19→22:42)
[2024-11-05] MEDS: ABIRATERONE ACETATE 250 MG TABLET 750 MG PO (09:20)
[2024-11-05 10:00] VITALS: BMI 30.7
[2024-11-05 14:16] VITALS: BP 110/52; PULSE 68
[2024-11-05 15:49] VITALS: BP 135/55; PULSE 66; RESP 14; TEMP 36.3; O2SAT 100
[2024-11-05] MEDS: Jevity 1.5 1,000 ML 70 ML GT (17:15)
[2024-11-05 22:30] VITALS: BP 138/60; PULSE 67
[2024-11-05 22:41] VITALS: BP 138/60; PULSE 67
[2024-11-05] MEDS: MELATONIN 3 MG TABLET PO (22:43)
[2024-11-06] VITALS (8 sets, daily range): BP systolic 98–124; BP diastolic 50–57; PULSE 62–67; RESP 16; TEMP 36.3; O2SAT 96–98
[2024-11-06] MEDS: Insulin Glargine-YFGN 100 UNIT/ML Pen 12 UNIT SC (10:31)
[2024-11-06] MEDS: APIXABAN 5 MG TABLET GT ×2 (10:31→20:20)
[2024-11-06] MEDS: ABIRATERONE ACETATE 250 MG TABLET 750 MG PO (10:32)
--- NOTE | 2024-11-06 11:16 | NURSING ---
Therapy reported to nursing patient had episode of coughing with standing. Patient was not able to bring anything up. Patient became diaphoretic. Emesis bag was provided. Patient did not have any emesis. Patient was returned to room. Patient assessed by nursing. Patient denies any dizziness/lightheadedness. Vitals WNL. Blood sugar checked and WNL. Patient not diaphoretic when nursing assessed. Patient denies any nausea. Patient is pleasantly confused. Will continue to monitor.
--- NOTE | 2024-11-06 14:44 | WOUNDNOTE ---
Was consulted again by nursing to reassess the buttocks d/t bleeding. Pt is currently up in the chair visiting with his . will try to assess when patient is back into bed. this nurse had assessed the buttocks last week and wounds were not bleeding at that time. open areas could be sticking to the attends and causing bleeding. plan is continue with the Triad cream as ordered. will monitor. pt states there is less discomfort than there had been.
[2024-11-06] MEDS: Jevity 1.5 1,000 ML 70 ML GT (16:55)
[2024-11-06] MEDS: MELATONIN 3 MG TABLET PO (20:21)
[2024-11-07 02:34] VITALS: PULSE 62; O2SAT 97
[2024-11-07 05:09] VITALS: BP 131/60; PULSE 66
[2024-11-07 05:11] VITALS: BP 131/60; PULSE 66
[2024-11-07] MEDS: APIXABAN 5 MG TABLET GT ×2 (08:56→23:14)
[2024-11-07] MEDS: ABIRATERONE ACETATE 250 MG TABLET 750 MG PO (10:26)
[2024-11-07] MEDS: Insulin Glargine-YFGN 100 UNIT/ML Pen 12 UNIT SC (10:36)
[2024-11-07 13:48] VITALS: PULSE 88
[2024-11-07 16:00] VITALS: BP 111/55; PULSE 63; TEMP 35.7; O2SAT 98
[2024-11-07] MEDS: Jevity 1.5 1,000 ML 70 ML GT (18:11)
[2024-11-07 23:10] VITALS: BP 116/57; PULSE 68
[2024-11-07] MEDS: MELATONIN 10 MG TABLET PO (23:16)
[2024-11-08 06:31] VITALS: BP 118/57; PULSE 63
[2024-11-08] MEDS: Insulin Glargine-YFGN 100 UNIT/ML Pen 12 UNIT SC (09:17)
[2024-11-08] MEDS: APIXABAN 5 MG TABLET GT ×2 (09:17→20:44)
[2024-11-08] MEDS: ABIRATERONE ACETATE 250 MG TABLET 750 MG PO (09:21)
[2024-11-08 10:00] VITALS: BP 121/50; PULSE 66; PULSE 69; RESP 16; RESP 20; TEMP 36.8; O2SAT 97; O2SAT 98
--- NOTE | 2024-11-08 10:02 | CASEMGMT ---
Social Work Insurance issued LCD 11/10, DC 11/11 SW phoned to notify of DC date. Explained appeal rights. denied appeal. confirms DC plan is to DC to [facility], [facility] under [facility] benefit. SW to coordinate transport. appreciative. - LUNA emailed LARY Bearden, with updated clinicals and notified of DC date to request auth. LUNA messaged [facility] via [employer] of DC date. PASRR completed in [place]. Scheduled transport through [facility] for 1100. Plan: DC 11/11 to [facility] SNF, skilled, [facility] benefit Nataliia Garrett POWER SCREWDRIVER OPERATOR METAL FABRICATOR
[2024-11-08 13:32] VITALS: BP 102/51; PULSE 60
--- NOTE | 2024-11-08 14:26 | WOUNDNOTE ---
Pt is again sitting up in the chair. unable to assess buttocks at this time. will attempt to see patient in the am before patient gets up into the chair so this nurse can assess buttocks.
[2024-11-08] MEDS: Jevity 1.5 1,000 ML 70 ML GT (16:57)
[2024-11-08 20:42] VITALS: BP 117/56; PULSE 68
[2024-11-08] MEDS: MELATONIN 10 MG TABLET PO (20:45)
--- NOTE | 2024-11-08 20:46 | DS.PCM_ITS ---
Providers Date of Admission: 10/20/24 Primary Care Physician: Dr. Himanshu Segal, Consultations 10/29/24 22:10 Consult: Onc/Wound/image processing engineer Routine Comment: Reason for Consult:: buttock open area 11/03/24 03:54 Consult: Onc/Wound/image processing engineer Routine Comment: Reason for Consult:: gavin buttocks open areas Comments:: areas worsening, bleeding, pt incontinent of b/b Reason For Visit: AORTIC DISSECTION/STROKE Diagnosis Discharge Diagnosis (1) Debility: Status: Acute Code(s): R53.81 - Other malaise (2) Aortic dissection: Status: Acute Code(s): I71.00 - Dissection of unspecified site of aorta (3) Stroke/cerebrovascular accident: Status: Acute Code(s): I63.9 - Cerebral infarction, unspecified (4) Subdural hematoma: Status: Acute Code(s): S06.5XAA - Traumatic subdural hemorrhage with loss of consciousness status unknown, initial encounter (5) Essential (primary) hypertension: Status: Acute Code(s): I10 - Essential (primary) hypertension (6) Hyperlipidemia, unspecified: Status: Acute Code(s): E78.5 - Hyperlipidemia, unspecified (7) History of prostate cancer: Status: Acute Code(s): Z85.46 - Personal history of malignant neoplasm of prostate (8) Osteoarthritis of right knee: Status: Acute Code(s): M17.11 - Unilateral primary osteoarthritis, right knee (9) Type 2 diabetes mellitus with hyperglycemia: Status: Acute Code(s): E11.65 - Type 2 diabetes mellitus with hyperglycemia Plan 79 year old male with below past medical history hospitalized for ascending thoracic aortic dissection s/p repair 09/28/2024, postoperative course complicated by stroke, right subdural hematoma, TF, admitted to TCU with debility, here for rehabilitation, strengthening, prior to discharge home with . * Debility - PT/OT. * Dysphagia - ST. * Pain - Tylenol 1000mg q8, Oxycodone 5mg q6 prn * Bowel - senna/colace 1 tablet bid. * Adult immunization - Administer pneumonia vaccine, covid vaccine, flu vaccine as appropriate. * DVT prophylaxis - Eliquis. * Hypertension - Coreg 25mg bid, Losartan 100mg daily, Hydralazine 50mg tid, Amlodipine 10mg daily, Furosemide 40mg daily. * RUE DVT - Eliquis 10mg bid thru 10/25/2024, then 5mg bid thru 01/18/2025. * Hyperlipidemia - Atorvastatin 40mg qhs. * Diabetes Mellitus II - Glargine 12 units daily, Lispro 4 units q6. * GERD - Lansoprazole 30mg daily. * Thrush - Nystatin 400 units q6 x 10 days. * Hypokalemia - KCL 40meq daily. * Pulmonary inflammation - Prednisone 5mg daily. * Nutrition - Vital High Protein 50ml/hour. Medications at Discharge Home Medications IV with Additives 70 mls/hr GT 11/08/24 abiraterone 250 mg tablet (Zytiga) 750 mg (3 x 250 mg) PO DAILY #0 tabs 11/08/24 acetaminophen 500 mg tablet 1,000 mg (2 x 500 mg) PO Q8 #0 tabs 11/08/24 amlodipine 10 mg tablet 10 mg PO DAILY #0 tabs 11/08/24 apixaban 5 mg tablet (Eliquis) 5 mg G-tube BID #0 tabs 11/08/24 atorvastatin 40 mg tablet 40 mg PO QHS #0 tabs 11/08/24 carvedilol 25 mg tablet 25 mg PO BID #0 tabs 11/08/24 furosemide 40 mg tablet 40 mg PO DAILY #0 tabs 11/08/24 hydralazine 50 mg tablet 50 mg PO TID #0 tabs 11/08/24 insulin glargine-yfgn 100 unit/mL (3 mL) subcutaneous pen 12 unit (0.12 mL) subcut DAILY #0 mL 11/08/24 insulin lispro 100 unit/mL subcutaneous pen (Humalog KwikPen (U-100) Insulin) 4 unit (0.04 mL) subcut Q6 #0 mL 11/08/24 lansoprazole 15 mg capsule,delayed release 30 mg (2 x 15 mg) PO DAILY #0 caps 11/08/24 losartan 100 mg tablet 100 mg PO DAILY #0 tabs 11/08/24 melatonin 10 mg sublingual tablet 10 mg PO QHS #0 tabs 11/08/24 menthol 0.44 %-zinc oxide 20.6 % topical ointment (Calmoseptine) 1 applic topical 0600,2200 #0 grams 11/08/24 prednisone 5 mg tablet 5 mg PO DAILYCM #0 tabs 11/08/24 Hospital Course Operations - (See below.) Procedures None Summary of Care Provided Minutes Spent on Discharge: 35 Hospital Course: 79 year old male with below past medical history hospitalized for ascending thoracic aortic dissection s/p repair 09/28/2024, postoperative course complicated by stroke, right subdural hematoma, TF, admitted to TCU with debility, here for rehabilitation, strengthening, prior to discharge home with . Discharge to [facility] 11/11/2024, skilled, [place]. Physical Exam Const alert General Appearance: cooperative HEENT normocephalic Eyes PERRL and EOMs intact bilaterally Neck supple, no JVD and no carotid bruits Resp normal respiratory effort, normal air movement and clear to auscultation bilaterally Cardio regular rate and regular rhythm GI normal to inspection, nondistended, normoactive bowel sounds, non-tender and non-distended GI Narrative: PEG. Extremity normal capillary refill General Extremity: Negative for edema Skin no rashes or lesions noted General Skin Exam: no breakdown Neuro Neuro Narrative: Moves right upper extremity only. Psych affect normal Appearance: appropriate Weight / BMI Weight Weight: 91.49 kg Body Mass Index (BMI) 30.7 ABG / Lab / Microbiology Data 11/02/24 06:42 11/02/24 06:42 Laboratory: Laboratory Results - last 24 hr 11/08/24 00:37: POC Glucose 140 H 11/08/24 05:51: POC Glucose 141 H 11/08/24 11:37: POC Glucose 129 H 11/08/24 18:00: POC Glucose 98 D/C Instructions Discharge Activity: Return to Normal Activity Weight Bearing Status: Weight bearing as tolerated Call your doctor if you observe: Fever of 101 or Higher, Inability to urinate, Inability to have a bowel movement, Shortness of breath, Dizziness, Fainting spells, Swelling in the ankles, Chest pain and Uncontrolled pain DC O2, CPAP, BIPAP Needs Home O2 Discharge instructions: No Additional Instructions: Discharge to [facility] 11/11/2024, skilled, [facility] benefit. Meaningful Use Info Meaningful Use Meaningful Use Diagnoses (Choose all that apply): Hemorrhagic CVA and Ischemic CVA Discharge Plan Admission Admit Date/Time: 10/20/24 12:45 Primary Reason for Your Visit: Debility. Attending Provider: Eleno Kulkarni Chi Primary Care Provider: Himanshu Segal Instructions Additional Instructions / Restrictions: Discharge to [facility] 11/11/2024, skilled, [facility] benefit. Discharge Orders/Prescriptions Prescriptions: New acetaminophen 500 mg Tablet 1,000 mg PO Q8 Qty: 0 0RF abiraterone [Zytiga] 250 mg Tablet 750 mg PO DAILY Qty: 0 0RF furosemide 40 mg Tablet 40 mg PO DAILY Qty: 0 0RF atorvastatin 40 mg Tablet 40 mg PO QHS Qty: 0 0RF carvedilol 25 mg Tablet 25 mg PO BID Qty: 0 0RF amlodipine 10 mg Tablet 10 mg PO DAILY Qty: 0 0RF hydralazine 50 mg Tablet 50 mg PO TID Qty: 0 0RF Eliquis 5 mg Tablet 5 mg G-tube BID Qty: 0 0RF insulin glargine-yfgn 100 unit/mL (3 mL) Insulin Pen 12 unit subcut DAILY Qty: 0 0RF insulin lispro [Humalog KwikPen Insulin] 100 unit/mL Insulin Pen 4 unit subcut Q6 Qty: 0 0RF lansoprazole 15 mg Capsule,Delayed Release(Dr/Ec) 30 mg PO DAILY Qty: 0 0RF losartan 100 mg Tablet 100 mg PO DAILY Qty: 0 0RF menthol-zinc oxide [Calmoseptine] 0.44-20.6 % Ointment 1 applic topical 0600,2200 Qty: 0 0RF Protocol: *Topical Application Instructions APPLICATION INSTRUCTIONS: Bilateral buttocks melatonin 10 mg Tablet, Sublingual 10 mg PO QHS Qty: 0 0RF IV with Additives Jevity 1.5 1000 ML 70 mls/hr GT Ordered By: Eleno Kulkarni Chi, MD Last Taken: 11/08/24 16:57 70 mls/hr prednisone 5 mg Tablet 5 mg PO DAILYCM Qty: 0 0RF Discontinued acetaminophen 500 mg capsule 1,000 mg feeding tube Q8H amlodipine 10 mg tablet 10 mg feeding tube DAILY Eliquis 5 mg tablet 10 mg feeding tube BID atorvastatin [Lipitor] 40 mg tablet 40 mg feeding tube QHS carvedilol 25 mg tablet 25 mg feeding tube BID Rx Instructions: must administer with a meal/food furosemide [Lasix] 40 mg tablet 40 mg feeding tube DAILY hydralazine 50 mg tablet 50 mg feeding tube TID insulin glargine [Lantus Solostar U-100 Insulin] 100 unit/mL (3 mL) insulin pen 12 unit subcut DAILY Novolin R Regular U100 Insulin 100 unit/mL solution 4 unit subcut Q6H Rx Instructions: administer with tube feeding lansoprazole 30 mg tablet,disintegrat, delay rel 30 mg feeding tube DAILY losartan [Cozaar] 100 mg tablet 100 mg feeding tube DAILY nystatin 100,000 unit/mL suspension 4 ml PO Q6H Rx Instructions: swish and swallow oxycodone 5 mg capsule 5 mg feeding tube Q6H potassium chloride 20 mEq packet 40 meq PO DAILY prednisone 5 mg tablet 5 mg feeding tube DAILY Referrals / Follow Up: Himanshu Segal DO [Primary Care Provider] - Disposition Disposition (needs filled in before D/C Order can be placed): [facility]
--- NOTE | 2024-11-08 20:53 | TREXTCAR_ITS ---
Diet Diet Order/Speech Therapy: INPATIENT Hospital Diet / Speech Therapy Order(s) 10/29/24 08:42 Diet: Regular - General Food consistency:: Mechanical (Minced/Moist) Liquid Consistency:: Regular/Thin Type of Dietary Supplement:: Glucerna Shake Diet Comments: 4 oz glucerna shake tid w/ meals Speech Therapy Comments: Direct supervision, SIPS ONE AT A TIME, meds whole 1 at a time in Routine Orders/Code Status Code Status: Full Code DC O2, CPAP, BIPAP needs Home O2 Discharge instructions: No Wound(s) mid sternal incision: Wound Type: Surgical Incision 4 puncture sites from drains to abdomen: Wound Type: Surgical Incision Coccyx: Wound Type: Linear moisture excoriation Dressing Change: triad Left ankle: Wound Type: Abrasion bilat buttocks open area: Wound Type: open areas Dressing Change: triad Therapies Weight Bearing: Weight bearing as tolerated Extremity Affected:: Bilateral Lower Physical Therapy: Eval and Treat Occupational Therapy: Eval and Treat Speech Therapy: Eval and Treat Problem/Diagnosis (1) Debility: Status: Acute Code(s): R53.81 - Other malaise (2) Aortic dissection: Status: Acute Code(s): I71.00 - Dissection of unspecified site of aorta (3) Stroke/cerebrovascular accident: Status: Acute Code(s): I63.9 - Cerebral infarction, unspecified (4) Subdural hematoma: Status: Acute Code(s): S06.5XAA - Traumatic subdural hemorrhage with loss of consciousness status unknown, initial encounter (5) Essential (primary) hypertension: Status: Acute Code(s): I10 - Essential (primary) hypertension (6) Hyperlipidemia, unspecified: Status: Acute Code(s): E78.5 - Hyperlipidemia, unspecified (7) History of prostate cancer: Status: Acute Code(s): Z85.46 - Personal history of malignant neoplasm of prostate (8) Osteoarthritis of right knee: Status: Acute Code(s): M17.11 - Unilateral primary osteoarthritis, right knee (9) Type 2 diabetes mellitus with hyperglycemia: Status: Acute Code(s): E11.65 - Type 2 diabetes mellitus with hyperglycemia Plan 79 year old male with below past medical history hospitalized for ascending thoracic aortic dissection s/p repair 09/28/2024, postoperative course complicated by stroke, right subdural hematoma, TF, admitted to TCU with debility, here for rehabilitation, strengthening, prior to discharge home with . * Debility - PT/OT. * Dysphagia - ST. * Pain - Tylenol 1000mg q8, Oxycodone 5mg q6 prn * Bowel - senna/colace 1 tablet bid. * Adult immunization - Administer pneumonia vaccine, covid vaccine, flu vaccine as appropriate. * DVT prophylaxis - Eliquis. * Hypertension - Coreg 25mg bid, Losartan 100mg daily, Hydralazine 50mg tid, Amlodipine 10mg daily, Furosemide 40mg daily. * RUE DVT - Eliquis 10mg bid thru 10/25/2024, then 5mg bid thru 01/18/2025. * Hyperlipidemia - Atorvastatin 40mg qhs. * Diabetes Mellitus II - Glargine 12 units daily, Lispro 4 units q6. * GERD - Lansoprazole 30mg daily. * Thrush - Nystatin 400 units q6 x 10 days. * Hypokalemia - KCL 40meq daily. * Pulmonary inflammation - Prednisone 5mg daily. * Nutrition - Vital High Protein 50ml/hour. Allergies/Procedures Done in Hospital Allergies metformin Allergy (Mild, Verified 10/20/24 14:45) Fatigue amlodipine Adverse Reaction (Mild, Verified 10/20/24 14:45) Cough betamethasone (From Celestone) Adverse Reaction (Mild, Verified 10/20/24 14:45) Raises blood sugar Procedures: None Type of Care/Length of Stay Estimated LOS: More Than 30 Days Type of Care Needed: Skilled Rehab Potential: Good Prognosis: Good Additional Orders/Day of Discharge Day of Discharge: 11/11/24 Dietary and Speech Recommendations Dietitian Recommendations/Changes: Will continue liberalized diet of Regular - consistency per BAG FILLER - as ordered. Will continue 4 oz glucerna shake w/ meals for increased nutrition if consumed. Will continue Jevity 1.5 at 70 ml/hr from 5p-5a w/ 155 ml water flush every 6 hours to provide ~ 1260 luis/ 54 gm pro/ 1258 ml free water/day. TF would meet 66% of est luis/ 77% of est pro needs/day. This would allow res to feel hungrier throughout day and help improve po intake at meals. As po established and wt stabilizes, rec transition to bolus feeds of Jevity 1.5: 300 ml bolus w/ 125 ml water flush before/after each feeding IF po intake <50% at meals. And provide HS bolus of Jevity 1.5: 300 ml bolus w/ 125 ml water flush before/after bolus for 450 luis/ 19 gm pro/458 ml water flush with each bolus feeding. Discharge Plan Admission Admit Date/Time: 10/20/24 12:45 Primary Reason for Your Visit: Debility. Attending Provider: Eleno Kulkarni Chi Primary Care Provider: Himanshu Segal Instructions Additional Instructions / Restrictions: Discharge to [facility] 11/11/2024, skilled, [facility] benefit. Discharge Orders/Prescriptions Prescriptions: New acetaminophen 500 mg Tablet 1,000 mg PO Q8 Qty: 0 0RF abiraterone [Zytiga] 250 mg Tablet 750 mg PO DAILY Qty: 0 0RF furosemide 40 mg Tablet 40 mg PO DAILY Qty: 0 0RF atorvastatin 40 mg Tablet 40 mg PO QHS Qty: 0 0RF carvedilol 25 mg Tablet 25 mg PO BID Qty: 0 0RF amlodipine 10 mg Tablet 10 mg PO DAILY Qty: 0 0RF hydralazine 50 mg Tablet 50 mg PO TID Qty: 0 0RF Eliquis 5 mg Tablet 5 mg G-tube BID Qty: 0 0RF insulin glargine-yfgn 100 unit/mL (3 mL) Insulin Pen 12 unit subcut DAILY Qty: 0 0RF insulin lispro [Humalog KwikPen Insulin] 100 unit/mL Insulin Pen 4 unit subcut Q6 Qty: 0 0RF lansoprazole 15 mg Capsule,Delayed Release(Dr/Ec) 30 mg PO DAILY Qty: 0 0RF losartan 100 mg Tablet 100 mg PO DAILY Qty: 0 0RF menthol-zinc oxide [Calmoseptine] 0.44-20.6 % Ointment 1 applic topical 0600,2200 Qty: 0 0RF Protocol: *Topical Application Instructions APPLICATION INSTRUCTIONS: Bilateral buttocks melatonin 10 mg Tablet, Sublingual 10 mg PO QHS Qty: 0 0RF IV with Additives Jevity 1.5 1000 ML 70 mls/hr GT Ordered By: Eleno Kulkarni Chi, MD Last Taken: 11/08/24 16:57 70 mls/hr prednisone 5 mg Tablet 5 mg PO DAILYCM Qty: 0 0RF Discontinued acetaminophen 500 mg capsule 1,000 mg feeding tube Q8H amlodipine 10 mg tablet 10 mg feeding tube DAILY Eliquis 5 mg tablet 10 mg feeding tube BID atorvastatin [Lipitor] 40 mg tablet 40 mg feeding tube QHS carvedilol 25 mg tablet 25 mg feeding tube BID Rx Instructions: must administer with a meal/food furosemide [Lasix] 40 mg tablet 40 mg feeding tube DAILY hydralazine 50 mg tablet 50 mg feeding tube TID insulin glargine [Lantus Solostar U-100 Insulin] 100 unit/mL (3 mL) insulin pen 12 unit subcut DAILY Novolin R Regular U100 Insulin 100 unit/mL solution 4 unit subcut Q6H Rx Instructions: administer with tube feeding lansoprazole 30 mg tablet,disintegrat, delay rel 30 mg feeding tube DAILY losartan [Cozaar] 100 mg tablet 100 mg feeding tube DAILY nystatin 100,000 unit/mL suspension 4 ml PO Q6H Rx Instructions: swish and swallow oxycodone 5 mg capsule 5 mg feeding tube Q6H potassium chloride 20 mEq packet 40 meq PO DAILY prednisone 5 mg tablet 5 mg feeding tube DAILY Referrals / Follow Up: Himanshu Segal DO [Primary Care Provider] - Disposition Disposition (needs filled in before D/C Order can be placed): Longterm Facility
[2024-11-09 05:54] VITALS: BP 129/58; PULSE 66
[2024-11-09 08:19] LABS: Hematocrit 30.8 % (40-54); Hemoglobin 10.3 g/dL (13.0-16.5); Immature Granulocytes Count 0.060 X10^3/uL (0.0-0.0); Mean Corp Hgb Conc 33.4 g/dL (32-36); Mean Corpuscular Volume 90.6 fL (80-94); Mean Platelet Vol. 9.8 fl (6.2-12.0); NRBC Flagged by Analyzer 0 % (0-5); Platelet Count 204 K/mm3 (150-450); RBC Distribution Width CV 14.9 % (11.6-14.6); RBC Distribution Width SD 49.2 fl (35.1-43.9); Red Blood Count 3.40 M/mm3 (4.6-6.2); White Blood Count 7.7 K/mm3 (4.4-11.0)
--- NOTE | 2024-11-09 08:38 | WOUNDNOTE ---
wound photo: bilateral buttocks
[2024-11-09 09:21] LABS: Anion Gap 12 (5-15); BUN 30 mg/dL (4-19); BUN/Creat Ratio 34.1 RATIO (10-20); Calcium,Total 8.6 mg/dL (7.6-11.0); Carbon Dioxide 23.6 mmol/L (21.0-32.0); Chloride 106 mmol/L (98-108); Estimated Creatinine Clearance 78.08 ml/min (50-250); Glucose 100 mg/dL (70-99); Potassium 3.3 mmol/L (3.3-5.1)
[2024-11-09 09:35] VITALS: BP 130/58; PULSE 68; RESP 17; TEMP 36.3; O2SAT 97
[2024-11-09] MEDS: APIXABAN 5 MG TABLET GT ×2 (09:37→22:35)
[2024-11-09] MEDS: ABIRATERONE ACETATE 250 MG TABLET 750 MG PO (09:39)
[2024-11-09] MEDS: Insulin Glargine-YFGN 100 UNIT/ML Pen 12 UNIT SC (09:40)
[2024-11-09 14:14] VITALS: BP 108/52; PULSE 65
[2024-11-09] MEDS: Jevity 1.5 1,000 ML 70 ML GT (17:03)
--- NOTE | 2024-11-09 17:48 | CASEMGMT ---
Social Work SW completed BIMS (06/16) and PHQ-2 () for MDS assessment. was present in room and confirmed DC plans are set. Nataliia Garrett PROFESSIONAL NURSE BUSINESS DEVELOPMENT
[2024-11-09 22:24] VITALS: BP 141/60; PULSE 65
[2024-11-09 22:34] VITALS: BP 141/60; PULSE 65
[2024-11-09] MEDS: MELATONIN 10 MG TABLET PO (22:36)
[2024-11-10] VITALS (7 sets, daily range): BP systolic 115–141; BP diastolic 55–61; PULSE 64–70; RESP 16; TEMP 36.8; O2SAT 97
[2024-11-10] MEDS: APIXABAN 5 MG TABLET GT ×2 (10:11→23:17)
[2024-11-10] MEDS: ABIRATERONE ACETATE 250 MG TABLET 750 MG PO (10:24)
[2024-11-10] MEDS: Insulin Glargine-YFGN 100 UNIT/ML Pen 12 UNIT SC (10:34)
[2024-11-10] MEDS: Jevity 1.5 1,000 ML 70 ML GT ×2 (17:05→23:13)
[2024-11-10] MEDS: MELATONIN 10 MG TABLET PO (23:18)
[2024-11-11 04:17] VITALS: PULSE 60; RESP 16; O2SAT 98
[2024-11-11 05:04] VITALS: BP 131/58; PULSE 61
--- NOTE | 2024-11-11 05:34 | NURSING ---
Attempted to give AM medications. Pt had moderate amount of emesis immediately following medication administration. Notified Dr. Kulkarni via telephone of emesis and hydralazine due at this time. New orders received to AM medications. Order verified via readback.
[2024-11-11] MEDS: ABIRATERONE ACETATE 250 MG TABLET 750 MG PO (08:49)
[2024-11-11] MEDS: APIXABAN 5 MG TABLET GT (08:50)
[2024-11-11 09:37] LABS: Hematocrit 30.7 % (40-54); Hemoglobin 10.3 g/dL (13.0-16.5); Immature Granulocytes Count 0.050 X10^3/uL (0.0-0.0); Mean Corp Hgb Conc 33.6 g/dL (32-36); Mean Corpuscular Volume 90.0 fL (80-94); Mean Platelet Vol. 9.6 fl (6.2-12.0); NRBC Flagged by Analyzer 0 % (0-5); Platelet Count 214 K/mm3 (150-450); RBC Distribution Width CV 15.2 % (11.6-14.6); RBC Distribution Width SD 50.3 fl (35.1-43.9); Red Blood Count 3.41 M/mm3 (4.6-6.2); White Blood Count 7.6 K/mm3 (4.4-11.0)
[2024-11-11 10:02] LABS: AST(SGOT) 18 U/L (<=37); Alanine Aminotransfer ALT/SGPT 11 U/L (<=46); Albumin, Serum 3.0 g/dL (3.4-4.8); Alkaline Phosphatase 85 U/L (40-129); Anion Gap 10 (5-15); BUN 28 mg/dL (4-19); BUN/Creat Ratio 32.2 RATIO (10-20); Calcium,Total 8.8 mg/dL (7.6-11.0); Carbon Dioxide 24.5 mmol/L (21.0-32.0); Chloride 106 mmol/L (98-108); Estimated Creatinine Clearance 78.08 ml/min (50-250); Globulin 3.3 g/dL (2.2-4.2); Glucose 107 mg/dL (70-99); Potassium 3.6 mmol/L (3.3-5.1)
[2024-11-11 11:14] LABS: Mucous, Urine 0 SEEN /hpf (<or=2+); Red Blood Cells-Urine 0 SEEN /hpf (0-5); Squamous Epithelial Cells - UA 0 SEEN /hpf (0-5)
[2024-11-11 11:32] VITALS: BP 137/63; PULSE 62; RESP 14; TEMP 36.4; O2SAT 99
[2024-11-11 11:41] LABS: Color, Urine Yellow (Yellow); Glucose, Dipstick Normal (Normal); Ketone-Dipstick Negative (Negative); Leukocyte Esterase-Dipstick Negative /ul (Negative); Nitrite-Dipstick Negative (Negative); Occult Blood-Urine Negative /ul (Negative); Protein-Dipstick 15 mg/dl (Negative); Specific Gravity, Urine 1.010 (1.002-1.030); Urine Bilirubin Dipstick Negative (Negative)
[2024-11-11 11:59] LABS: Yeast-Urine 1+ /hpf (None Seen)
== END 2024-11-11 11:15 | disposition skilled nursing facility (03) | DRG 949 ==
PROVIDERS: Admitting Provider Family Medicine Geriatric Medicine; PCP Family Medicine; Visit Provider Family Medicine Geriatric Medicine
DX: Z48.812 Encounter for surgical aftercare following surgery on the circulatory system (principal); I62.00 Nontraumatic subdural hemorrhage, unspecified; I71.010 Dissection of ascending aorta; J18.9 Pneumonia, unspecified organism; I82.621 Acute embolism and thrombosis of deep veins of right upper extremity; B37.0 Candidal stomatitis; E11.65 Type 2 diabetes mellitus with hyperglycemia; I10 Essential (primary) hypertension; E78.5 Hyperlipidemia, unspecified; E87.6 Hypokalemia; K21.9 Gastro-esophageal reflux disease without esophagitis; M17.11 Unilateral primary osteoarthritis, right knee; Z79.4 Long term (current) use of insulin; R15.9 Full incontinence of feces; S31.819A Unspecified open wound of right buttock, initial encounter; S31.829A Unspecified open wound of left buttock, initial encounter; Z79.899 Other long term (current) drug therapy; Z79.01 Long term (current) use of anticoagulants; G47.00 Insomnia, unspecified; R32 Unspecified urinary incontinence; X58.XXXA Exposure to other specified factors, initial encounter
CPT/HCPCS: 36415; 71046; 74230; 80048; 80053; 81001; 82962; 85025; 87086; 87088; 92507; 92523; 92526; 92610; 92611; 94667; 97110; 97112; 97116; 97162; 97167; 97530; 97535; 97802; 97803; A4216